=== PATIENT | female | born 1985 | race Hispanic/Latino ===

== ENCOUNTER 2017-09-21 18:19 | Emergency (ER) | payer OTHER ==
[2017-09-21 19:26] LABS: Urine Amorphous Sediment 1+ /HPF (NONE SEEN); Urine Bacteria <20 /HPF (<20); Urine Culture Reflex Order NOT NEEDED
[2017-09-21 19:27] LABS: Urine Blood TRACE (NEG); Urine Glucose NEGATIVE (NEG); Urine Protein NEGATIVE (NEG)
[2017-09-21] MEDS ORDERED: ONDANSETRON 4 MG/2 ML VIAL ONE (19:28)
[2017-09-21] MEDS ORDERED: FENTANYL CITR 100 MCG/2 ML ONE (19:28)
[2017-09-21] MEDS ORDERED: NA CHLORIDE 0.9% 1,000 ML ONE (19:28)
[2017-09-21 19:33] LABS: Absolute Lymphocytes (CBC) 1.4 K/uL (0.7-4.9); Absolute Monocytes 0.6 K/uL (0.1-1.3); Absolute Neutrophil 5.8 K/uL (1.8-8.0); Basophils % 0.3 % (0-1.3); Eosinophils % 5.7 % (0-4.4); Hematocrit 39.4 % (36.0-45.0); Lymphocytes % 16.3 % (15.3-44.8); MCH 29.8 pg (27.0-35.0); MCV 87.1 fL (80-100); MPV 8.7 fL (7.6-11.3); Monocytes % 7.8 % (3.3-12.3); RBC Red Blood Cell Count 4.52 M/uL (3.86-4.86)
[2017-09-21 19:35] LABS: BUN Blood Urea Nitrogen 16 mg/dL (6-20); Bicarbonate 27 mEq/L (21-31); Glomerular Filtration Rate > 90 mL/min (=/>90); Glucose Level 113 mg/dL (65-120); Sodium Level 137 mEq/L (135-145)
--- NOTE | 2017-09-21 20:37 | RAD REPORT ---
EXAM DESCRIPTION: CT - Abdomen Pelvis W Contrast - 09/21/2017 7:58 pm CLINICAL HISTORY: Abdominal pain lower abdominal pain COMPARISON: 2011 TECHNIQUE: Computed axial tomography of the abdomen pelvis was obtained. 100 cc Isovue-300 was admin istered intravenously. Oral contrast was not requested which limits evaluation of bowel. All CT scans are performed using dose optimization technique as appropriate and may include automated exposure control or mA/KV adjustment according to patient size. FINDINGS: The liver, spleen, pancreas, adrenal and kidneys appear unremarkable. There is no evidence of diverticulitis. The appendix is normal. A 2 centimeter irregularly-shaped left ovarian cyst is present without a small amount of free fluid IMPRESSION: 2 centimeter irregularly-shaped left ovarian cyst likely has recently ruptured. A small amount of free fluid is present.
--- NOTE | 2017-09-21 20:40 | EDPHYS ---
Physician Documentation [facility] Name: Colleen Hinojosa Age: 32 yrs Sex: Female : 1985 Arrival Date: 09/21/2017 Time: 18:21 Bed 27 Private MD: ED Physician John Palmer HPI: 09/21 18:56 This 32 yrs old Female presents to ER via Ambulatory with complaints of snw Abdominal Pain. 18:56 The patient presents with abdominal pain in the right upper quadrant, in the left upper snw quadrant. Onset: The symptoms/episode began/occurred suddenly, just prior to arrival. The symptoms do not radiate. Associated signs and symptoms: Pertinent positives: vomited x 1 when it occurred. The symptoms are described as burning. Modifying factors: The symptoms are alleviated by nothing, the symptoms are aggravated by movement. Severity of pain: At its worst the pain was severe just prior to arrival. The patient has not experienced similar symptoms in the past. pt was lifting herself up on hands and felt a sharp, burning pain to lower abd. Sudden severe nausea, vomited x 1. Pain has not resolved. 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 - Social history:: Smoking status: Patient/guardian denies using tobacco. ROS: 18:53 Constitutional: Negative for fever, chills, and weight loss, Eyes: Negative for injury, snw pain, redness, and discharge, ENT: Negative for injury, pain, and discharge, Neck: Negative for injury, pain, and swelling, Cardiovascular: Negative for chest pain, palpitations, and edema, Respiratory: Negative for shortness of breath, cough, wheezing, and pleuritic chest pain, Back: Negative for injury and pain, : Negative for injury, bleeding, discharge, and swelling, MS/Extremity: Negative for injury and deformity, Skin: Negative for injury, rash, and discoloration, Neuro: Negative for headache, weakness, numbness, tingling, and seizure. 18:53 Abdomen/GI: Positive for abdominal pain. Exam: 18:53 Constitutional: This is a well developed, well nourished patient who is awake, alert, snw and in no acute distress. Head/Face: Normocephalic, atraumatic. Eyes: Pupils equal round and reactive to light, extra-ocular motions intact. Lids and lashes normal. Conjunctiva and sclera are non-icteric and not injected. Cornea within normal limits. Periorbital areas with no swelling, redness, or edema. ENT: Nares patent. No nasal discharge, no septal abnormalities noted. Tympanic membranes are normal and external auditory canals are clear. Oropharynx with no redness, swelling, or masses, exudates, or evidence of obstruction, uvula midline. Mucous membranes moist. Neck: Trachea midline, no thyromegaly or masses palpated, and no cervical lymphadenopathy. Supple, full range of motion without nuchal rigidity, or vertebral point tenderness. No Meningismus. Chest/axilla: Normal chest wall appearance and motion. Nontender with no deformity. No lesions are appreciated. Cardiovascular: Regular rate and rhythm with a normal S1 and S2. No gallops, murmurs, or rubs. Normal PMI, no JVD. No pulse deficits. Respiratory: Lungs have equal breath sounds bilaterally, clear to auscultation and percussion. No rales, rhonchi or wheezes noted. No increased work of breathing, no retractions or nasal flaring. Back: No spinal tenderness. No costovertebral tenderness. Full range of motion. Skin: Warm, dry with normal turgor. Normal color with no rashes, no lesions, and no evidence of cellulitis. MS/ Extremity: Pulses equal, no cyanosis. Neurovascular intact. Full, normal range of motion. Neuro: Awake and alert, GCS 15, oriented to person, place, time, and situation. Cranial nerves II-XII grossly intact. Motor strength 5/5 in all extremities. Sensory grossly intact. Cerebellar exam normal. Normal gait. Psych: Awake, alert, with orientation to person, place and time. Behavior, mood, and affect are within normal limits. 18:53 Abdomen/GI: Inspection: obese Bowel sounds: normal, Palpation: moderate abdominal tenderness, in the anterior aspect of right lateral abdomen and left lower quadrant, rebound tenderness, is not appreciated, worsening pain with extension of ileo psoas muscle to right. Vital Signs: 18:24 BP 124 / 64; Pulse 64; Resp 18; Temp 98.0(TE); Pulse Ox 100% on R/A; Weight 76.66 kg; hj Height 5 ft. 0 in. (152.40 cm); Pain 8/10; 19:30 BP 111 / 67; Pulse 68; Resp 16; Pulse Ox 100% on R/A; lk1 20:30 BP 117 / 67; Pulse 72; Resp 16; Pulse Ox 99% on R/A; Pain 4/10; lk1 18:24 Body Mass Index 33.01 (76.66 kg, 152.40 cm) hj MDM: 18:32 Patient medically screened. snw 20:39 Data reviewed: vital signs, nurses notes. Data interpreted: Pulse oximetry: on room air snw is 100 %. Interpretation: normal. Counseling: I had a detailed discussion with the patient and/or guardian regarding: the historical points, exam findings, and any diagnostic results supporting the discharge/admit diagnosis, lab results, radiology results, the need for outpatient follow up, to return to the emergency department if symptoms worsen or persist or if there are any questions or concerns that arise at home. Special discussion: Based on the patient's Hx, exam, and Dx evaluation, there is no indication for emergent surgery or inpatient Tx. It is understood by the patient/guardian that if the Sx's persist or worsen they need to return immediately for re-evaluation. Based on the history and exam findings, there is no indication for further emergent testing or inpatient evaluation. I discussed with the patient/guardian the need to see the OB Gyne specialist for further evaluation of the symptoms. I discussed with the patient/guardian the need to see the primary care provider for further evaluation of the symptoms. 09/21 18:33 Order name: Urine Microscopic Only; Complete Time: 19:28 snw 09/21 18:53 Order name: CBC with Diff; Complete Time: 19:36 snw 09/21 18:53 Order name: Chem 7; Complete Time: 19:36 snw 09/21 19:00 Order name: Urine Dipstick--Ancillary (enter results) em1 09/21 19:00 Order name: Urine --Ancillary (enter results) em1 09/21 19:01 Order name: Urine Dipstick-Ancillary; Complete Time: 19:28 EDMS 09/21 18:33 Order name: Urine Test (obtain specimen); Complete Time: 18:59 snw 09/21 18:33 Order name: Urine Dipstick-Ancillary (obtain specimen); Complete Time: 18:59 snw 09/21 18:53 Order name: CT Abd/Pelvis - W/Contrast; Complete Time: 20:37 snw 09/21 19:01 Order name: Urine --Ancillary; Complete Time: 19:28 EDMS Administered Medications: 19:14 Drug: NS 0.9% 1000 ml Route: IV; Rate: 1 bolus; Site: right antecubital; lk1 20:00 Follow up: Response: No adverse reaction; IV Status: Completed infusion lk1 19:14 Drug: Zofran 4 mg Route: IVP; Site: right antecubital; lk1 19:30 Follow up: Response: No adverse reaction; Nausea is decreased lk1 19:16 Drug: fentaNYL (PF) 25 mcg Route: IVP; Site: right antecubital; lk1 19:30 Follow up: Response: No adverse reaction; Pain is decreased lk1 Disposition: 09/22 07:09 Co-signature as Attending Physician, John Palmer MD. rn Disposition: 09/21/17 20:39 Discharged to Home. Impression: Follicular cyst of ovary - with recent rupture, Lower abdominal pain, unspecified. - Condition is Stable. - Discharge Instructions: Ovarian Cyst, Abdominal Pain, Women. - Prescriptions for Diclofenac Sodium 75 mg Oral Tablet Sustained Release - take 1 tablet by ORAL route 2 times per day; 30 tablet. orphenadrine citrate 100 mg Oral Tablet Sustained Release - take 1 tablet by ORAL route 2 times per day As needed; 20 tablet. - Medication Reconciliation Form, Thank You Letter, Antibiotic Education, Prescription Opioid Use form. - Follow up: Private Physician; When: 2 - 3 days; Reason: Recheck today's complaints, Continuance of care, Re-evaluation by your physician. Follow up: Emergency Department; When: As needed; Reason: Worsening of condition. Signatures: Dispatcher [employer] EDSC Nancy Reveles, SSN/SSBN ASSISTANT NAVIGATOR-C SSN/SSBN ASSISTANT NAVIGATOR-Csnw John Palmer MD MD rn Joaquin, Henry, RN RN hj Kluge, Leah, RN RN lk1
--- NOTE | 2017-09-21 20:40 | ER ---
Nurse's Notes [facility] Name: Colleen Hinojosa Age: 32 yrs Sex: Female : 1985 Arrival Date: 09/21/2017 Time: 18:21 Bed 27 Private MD: Diagnosis: Follicular cyst of ovary-with recent rupture;Lower abdominal pain, unspecified Presentation: 09/21 18:22 Presenting complaint: Patient states: we were at the [facility] earlier, and when hj i tried to push my self up from bending, i felt a painful snap on my lower abdomen, and its getting worse;. Transition of care: patient was not received from another setting of care. Onset of symptoms was September 21, 2017. Care prior to arrival: None. 18:22 Method Of Arrival: Ambulatory 18:22 Acuity: MANUEL 3 hj Triage Assessment: 18:24 General: Appears in no apparent distress. uncomfortable, Behavior is calm, cooperative, hj appropriate for age. Pain: Complains of pain in suprapubic area. GI: Reports lower abdominal pain. 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 - Social history:: Smoking status: Patient/guardian denies using tobacco. Screenin:54 Abuse screen: Denies threats or abuse. Denies injuries from another. Nutritional lk1 screening: No deficits noted. Tuberculosis screening: No symptoms or risk factors identified. Fall Risk Total [place] Fall Scale indicates No Risk (0-24 pts). Assessment: 18:24 GI: Bowel sounds present X 4 quads. Abd is soft. hj 19:55 General: Appears in no apparent distress. Behavior is calm, cooperative, appropriate lk1 for age. Pain: Complains of pain in suprapubic area Pain currently is 8 out of 10 on a pain scale. Neuro: Level of Consciousness is awake, alert, obeys commands, Oriented to person, place, time, situation. Cardiovascular: Heart tones S1 S2 present Capillary refill is brisk Patient's skin is warm and dry. Respiratory: Airway is patent Respiratory effort is even, unlabored, Respiratory pattern is regular, symmetrical, Breath sounds are clear bilaterally. GI: Abdomen is non-distended. : No signs and/or symptoms were reported regarding the genitourinary system. : Denies burning with urination, urinary frequency, urgency. EENT: No signs and/or symptoms were reported regarding the EENT system. Derm: No signs and/or symptoms reported regarding the dermatologic system. Musculoskeletal: No signs and/or symptoms reported regarding the musculoskeletal system. Vital Signs: 18:24 BP 124 / 64; Pulse 64; Resp 18; Temp 98.0(TE); Pulse Ox 100% on R/A; Weight 76.66 kg; hj Height 5 ft. 0 in. (152.40 cm); Pain 8/10; 19:30 BP 111 / 67; Pulse 68; Resp 16; Pulse Ox 100% on R/A; lk1 20:30 BP 117 / 67; Pulse 72; Resp 16; Pulse Ox 99% on R/A; Pain 4/10; lk1 18:24 Body Mass Index 33.01 (76.66 kg, 152.40 cm) ED Course: 18:21 Patient arrived in ED. as 18:23 Triage completed. hj 18:24 Arm band placed on right wrist. hj 18:31 Nancy Reveles FNP-C [facility]. snw 18:31 John Palmer MD is Attending Physician. snw 18:52 Matilda Mandel, DANA is Primary Nurse. lk1 19:16 Initial lab(s) drawn, by me, sent to lab. Inserted saline lock: 20 gauge in right dh3 antecubital area, using aseptic technique. Blood collected. 19:55 CT completed. Patient moved to CT. Patient moved back from CT. cw1 19:56 Patient has correct armband on for positive identification. Bed in low position. Call lk1 light in reach. Side rails up X 1. 19:58 CT Abd/Pelvis - W/Contrast In Process Unspecified. EDMS 20:59 No provider procedures requiring assistance completed. IV discontinued, intact, lk1 bleeding controlled, No redness/swelling at site. Pressure dressing applied. Administered Medications: 19:14 Drug: NS 0.9% 1000 ml Route: IV; Rate: 1 bolus; Site: right antecubital; lk1 20:00 Follow up: Response: No adverse reaction; IV Status: Completed infusion lk1 19:14 Drug: Zofran 4 mg Route: IVP; Site: right antecubital; 1 19:30 Follow up: Response: No adverse reaction; Nausea is decreased lk1 19:16 Drug: fentaNYL (PF) 25 mcg Route: IVP; Site: right antecubital; 1 19:30 Follow up: Response: No adverse reaction; Pain is decreased lk1 Outcome: 20:39 Discharge ordered by MD. kyle 20:58 Discharged to home ambulatory, with significant other. lk1 20:58 Condition: good 20:58 Discharge instructions given to patient, significant other, Instructed on discharge instructions, follow up and referral plans. medication usage, safety practices, Demonstrated understanding of instructions, follow-up care, medications, Prescriptions given X 2. 21:01 Patient left the ED. 1 Signatures: Dispatcher [employer] EDMS Nancy Reveles, JL-C COMPUTER HELP DESK REPRESENTATIVE-Camille Hernandez [place] 1 Jose Alejandro Chan RN RN Matilda Mandel RN RN 1 Denisa Crawford [facility] Corrections: (The following items were deleted from the chart) 18:27 18:24 Pulse 64bpm; Resp 18bpm; Pulse Ox 100% RA; Temp 98.0F Temporal; 76.66 kg; Height hj 5 ft. 0 in.; BMI: 33.0; Pain 8/10; hj 19:44 19:43 Temp 99.0F Oral; 3 3 19:44 19:43 Flu and/or RSV swab sent to lab. Strep swab sent to lab. [place] [id number]
[2017-09-21 21:07] VITALS: TEMP 98
[2017-09-21 21:10] VITALS: BP 117/67; O2SAT 99
== END 2017-09-21 21:01 | disposition home or self-care (01) ==
LOC: ER 18:19
DX: N83.00 Follicular cyst of ovary, unspecified side (principal)
CPT/HCPCS: 36415; 74177; 80048; 81003; 81015; 81025; 85025; 96361; 96374; 96375; 99284; J2405; J3010; J7030; Q9967